=== PATIENT | female | born 1965 | race Caucasian/White ===

== ENCOUNTER 2018-06-28 07:14 | Outpatient (CLI) | payer BC ==
[2018-06-28 08:58] LABS: eGFR (Non-African) > 60
== END 2018-06-28 07:15 ==
LOC: LAB 07:14
PROVIDERS: ATTEND Family Medicine
DX: I10 Essential (primary) hypertension (principal); D17.9 Benign lipomatous neoplasm, unspecified; K21.9 Gastro-esophageal reflux disease without esophagitis; R73.9 Hyperglycemia, unspecified
CPT/HCPCS: 36415; 80053; 80061; 83036

== ENCOUNTER 2018-12-18 19:23 | Emergency (ER) | payer BC, OTHER ==
[2018-12-18] MEDS ORDERED: IPRATROPIUM/ALBUTEROL SULFATE 3 ML AMPUL.NEB NEB ONE (19:36)
--- NOTE | 2018-12-18 19:36 | ED Physician Documentation ---
Dyspnea - HISTORIAN Historian: patient - HPI Stated Complaint: shortness of air increasing since Wednesday (increased stress) Chief Complaint: Dyspnea Onset: days ago (3) Duration: continues in ED Initiating Event: upper respiratory illness (last week she also has a recent increase in stress ) Exacerbated By: laying flat Further Comments: yes (she reports last week she had the flu and upper resp and she notes this week she had news her husbands cancer has progressed. She states over the weekend she has had shortness of air where today when she was laying down trying to sleep she had increased shortness of air and this did prompt her to be seen. She has shortness of air - increased with laying flat that is moving to her back . No jaw or arm pain. She does not take meds for anxiety although she does state she feels anxious) - ROS CONST: no problems EYES/ENT: none GI/: denies: vomiting, nausea NEURO/PSYCH: denies: headache MS/SKIN/LYMPH: denies: rash - PAST HX Lung Disease: other (HTN ) PE Risk Factors: hypertension Immunizations: UTD Allergies/Adverse Reactions: Allergies Allergy/AdvReac Type Severity Reaction Status Date / Time cashew nut Allergy Unverified 02/22/18 09:10 iodine Allergy Unverified 02/22/18 09:10 morphine Allergy Unverified 02/22/18 09:10 Penicillins Allergy Unverified 02/22/18 09:10 shellfish derived Allergy Unverified 02/22/18 09:10 Home Medications: Ambulatory Orders Medication Instructions Recorded Amlodipine Besylate 5 mg PO DAILY u2 02/22/18 Losartan Potassium 100 mg PO DAILY u2 02/22/18 - SOCIAL HX Smoking History: non-smoker Alcohol Use: none Drug Use: none - FAMILY HX Family History: none - REVIEWED ASSESSMENTS Nursing Assessment Reviewed: Yes Vitals Reviewed: Yes Progress - Progress Progress: 2024: discussed current results and plan she is agreeable DG Dyspnea Physical Exam - EXAM General Appearance: no acute distress, alert EENT: eye inspection normal, ENT inspection normal, pharynx normal, no signs of dehydration Respiratory: no resp. distress, breath sounds nml, no pain on inspiration, speaks full sentences CVS: reg. rate & rhythm, no murmur Abdomen: non-tender Skin: color nml Extremities: non-tender, normal range of motion, no evidence of injury, no edema Neuro/Psych: oriented x3 Discharge Clincal Impression: Chest pain Qualifiers: Chest pain type: other chest pain Qualified Code(s): R07.89 - Other chest pain; R07.8 - Other chest pain Referrals: Alex Stovall MD [Primary Care Provider] - 2 Days Comments: 1. Ativan 0.5 mg take 1 by mouth every 8 hours as needed for anxiety 2. Increase fluids 3. Rest 4. Follow up with PCP in 2 days 5. Return to ER for increasing concerns Condition: Stable Disposition: 01 HOME, SELF-CARE Decision to Admit: NO Date of Decison to Admit: 12/18/18 Decision Time: 20:29
[2018-12-18] MEDS ORDERED: 0.9 % SODIUM CHLORIDE 1,000 ML IV ONE (19:37)
[2018-12-18] MEDS ORDERED: ASPIRIN 81 MG CHEW TAB PO ONE (19:40)
[2018-12-18] MEDS ORDERED: LORazepam 2 MG/ML VIAL IV ONE (20:23)
--- NOTE | 2018-12-18 20:47 | Diagnostic Imaging Report ---
GISSELLE LUA [facility] [address] [facility] [address] [place], [place]. [address] Report Submission Date: Dec 18, 2018 8:25:52 PM CDT Patient Study Name: SYD BAHENA Date: Dec 18, 2018 8:11:30 PM CDT Modality Type: DX Gender: F Description: CHEST 1VIEW : 61 Institution: [facility] Physician: GISSELLE LUA Portable chest History: Chest pain Findings: The lungs are clear. There is no pleural effusion. Heart size and pulmonary vascularity are normal. Osseous structures are intact. A left pericardial fat pad is noted. Electronically signed on Dec 18, 2018 8:25:52 PM CDT by: Manuel ELLISON
[2018-12-18 20:53] VITALS: BP 160/70
[2018-12-19 06:08] LABS: BASOPHILS % 0.7 (0.0-1.5); EOSINOPHILS % 2.6 % (0.0-6.8); MEAN CORPUSCULAR HEMOGLOBIN 29.7 pg (28.0-34.0); MONOCYTES % 4.4 % (0.0-11.0)
[2018-12-19 06:11] LABS: eGFR (Non-African) > 60
== END 2018-12-18 20:53 | disposition home or self-care (01) ==
LOC: ED 19:23
DX: R07.89 Other chest pain (principal)
CPT/HCPCS: 36415; 71045; 80053; 84484; 85025; 85379; 93005; 94640; 99283; 99284; J7030; S1016

== ENCOUNTER 2019-03-14 07:14 | Outpatient (CLI) | payer OTHER ==
[2019-03-22 08:12] LABS: A1C 5.6 % (-5.7); BASOPHILS % 0.5 % (0.0-1.5); HDL 55 mg/dL (>40); NEUTROPHILS # 3.7 # k/uL (1.4-7.7); eGFR (Non-African) > 60
== END 2019-03-14 07:19 | disposition home or self-care (01) ==
LOC: LAB 07:14
PROVIDERS: ATTEND Nurse Practitioner Family
DX: R53.1 Weakness (principal); R53.83 Other fatigue
CPT/HCPCS: 36415; 80053; 80061; 83036; 84443; 85025